=== PATIENT | male | born 1985 | race Two or more races ===

== ENCOUNTER 2021-02-07 11:18 | Emergency (ER) | payer OTHER ==
[~2021-02-07] VITALS: Ht 177.8 cm; Wt 113.0 kg
--- NOTE | 2021-02-07 11:54 | PHYS DOC ---
Past History Past Medical History: No Pertinent History Past Surgical History: Other Additional Past Surgical Histo: left hip replacement Alcohol Use: Occasionally Adult General Chief Complaint Chief Complaint: KNEE INJURY [facility] HPI Patient is a 35-year-old male presenting for right knee pain. Reports he was outside playing with a 70 pound [place] dog when the dog hit him on the right outside portion of his knee causing a valgus type strain. He reports having minimal pain with ambulation but feels a clicking on the medial portion of his knee with residual pain. Reports it 2/10 severity. Has no prior surgeries to said knee. He has not taken anything for the pain. He is ambulatory today but wants evaluation Review of Systems Review of Systems Fourteen body systems of review of systems have been reviewed. See HPI for pertinent positives and negative responses, other long all other systems are negative, non-pertinent or non-contributory Allergies Allergies Allergies Coded Allergies Type Severity Reaction Last Updated Verified No Known Drug Allergies 02/07/21 No Physical Exam Physical Exam Constitutional: Well developed, well nourished, no acute distress, non-toxic appearance. HENT: Normocephalic, atraumatic, bilateral external ears normal, oropharynx moist, no oral exudates, nose normal. Eyes: PERRLA, EOMI, conjunctiva normal, no discharge. Neck: Normal range of motion, no tenderness, supple, no stridor. Cardiovascular: Heart rate regular per monitor Lungs & Thorax: No respiratory distress or accessory muscle use, bilateral chest rise Abdomen: Abdomen soft, non-tender, bowel sounds present in all quadrants, no guarding or rebound, nonacute abdomen. Skin: Warm, dry, no erythema, no rash. Back: No tenderness, no CVA tenderness. Extremities: Medial joint line tenderness of right knee, negative anterior and posterior Priscilla tests, negative sag test, no significant joint laxity with comprehensive evaluation of right knee. Patient's gait unremarkable. No cyanosis, no clubbing, ROM intact, no edema. Neurologic: Alert and oriented X 3, grossly normal motor & sensory function, no focal deficits noted. Psychologic: Affect normal, judgement normal, mood normal. Current Patient Data Vital Signs Vital Signs Date Time Temp Pulse Resp B/P (MAP) Pulse Ox O2 Delivery O2 Flow Rate FiO2 02/07/21 11:20 98.1 74 18 128/92 (104) 99 Room Air EKG EKG [] Radiology/Procedures Radiology/Procedures Site ID: [id number] EXAMINATION: XR KNEE 4 VIEWS WITH PATELLA_RT. HISTORY: 35 years Male Reason: lateral blow to leg, medial knee pain COMPARISON: None. FINDINGS: No fracture, dislocation or radiopaque foreign body. There is a 5 mm well- corticated the ossification seen projecting at the tibio femoral joint line. This is located the centrally in the joint just medial to the tibial spine. Fibula is seen on the lateral view, however at this particular body is not vis ualized and therefore is not accurately localized on the lateral view. The sunrise view demonstrate normal appearance of the patellofemoral joint. The joint spaces and articular surfaces appear unremarkable. IMPRESSION: Well-corticated 5 mm ossific body is seen projecting at the tibial femoral joint level seen only on the AP and oblique projections. This could represent a loose body. Correlation with MRI or CT scan of the right knee can confirm if this is indeed a loose body within the joint cavity. Electronically signed by: Wilner Torres MD (02/07/2021 12:21 PM) [id number] Heart Score C/O Chest Pain: No Risk Factors: Risk Factors: DM, Current or recent (<one month) smoker, HTN, HLP, family history of CAD, obesity. Risk Scores: Risk Factors: DM, Current or recent (<one month) smoker, HTN, HLP, family his tory of CAD, obesity. Course & Med Decision Making Course & Med Decision Making Discussed with the patient all findings and diagnostic testing. I discussed most likely diagnosis of right knee injury. I disclosed findings at length and need for CT and/or MRI. I disclosed we do not have MRI in ER setting and discussed utility of CT. Patient reports pain is not terrible, is in the middle of [employer] moving with the [employer] across the country. He does not want to wait any longer for future CT testing as he reports he is ambulatory and can tolerate the pain. He has full capacity to make this decision. As such, I stressed need for close outpatient follow-up to review today's ER visit. Strict return precautions were also discussed at length with good understanding by patient. Patient voiced understanding and agreement with the plan. Patient knows to come back for repeat evaluation if concerning signs or symptoms present prior to outpatient follow- up. Hemodynamically stable, ambulatory and well-appearing at time of disposition. Dragon Disclaimer Dragon Disclaimer This electronic medical record was generated, in whole or in part, using a voice recognition dictation system. Departure Departure: Impression: Primary Impression: Right medial knee pain Disposition: HOME / SELF CARE / HOMELESS Condition: STABLE Referrals: PCP,UNKNOWN (PCP) Patient Instructions: RICE - Routine Care for Injuries Additional Instructions: As discussed prior to ER departure, your vital signs and physical exam were nonconcerning for any emergent or surgical issues. I disclosed finding of a 5 mm ossific body present in the right knee and recommended need for MRI and/or CT scan to confirm if it is indeed a loose body within the joint cavity. You elected to defer given that you are about to PCS across the country with the . As such, please continue providing supportive care such as rice protocol, take NSAIDs and/or Tylenol for pain as needed, and follow-up immediately after your move for evaluation at local primary care clinic for further evaluation and treatment of your right knee. If any concerning signs or symptoms present prior to outpatient follow-up please do not hesitate to come back to our facility if you are still in the area or nearest ER department or urgent care for evaluation. It was a pleasure to take care of you and I wish you the best going forward ERROL STEPHENS DO Feb 07, 2021 11:54
--- NOTE | 2021-02-07 12:23 | RAD ---
Site ID: [id number] EXAMINATION: XR KNEE 4 VIEWS WITH PATELLA_RT. HISTORY: 35 years Male Reason: lateral blow to leg, medial knee pain COMPARISON: None. FINDINGS: No fracture, dislocation or radiopaque foreign body. There is a 5 mm well-corticated the ossificatio n seen projecting at the tibio femoral joint line. This is located the centrally in the joint just me dial to the tibial spine. Fibula is seen on the lateral view, however at this particular body is not visualized and therefore is not accurately localized on the lateral view. The sunrise view demonstrat e normal appearance of the patellofemoral joint. The joint spaces and articular surfaces appear unrem arkable. IMPRESSION: Well-corticated 5 mm ossific body is seen projecting at the tibial femoral joint level seen only on t he AP and oblique projections. This could represent a loose body. Correlation with MRI or CT scan of the right knee can confirm if this is indeed a loose body within the joint cavity. Electronically signed by: Wilner Torres MD (02/07/2021 12:21 PM) [id number]
[2021-02-07 13:06] VITALS: BP 146/91
== END 2021-02-07 13:06 | disposition home or self-care (01) ==
LOC: ER 11:18
DX: M25.561 Pain in right knee (principal); X58.XXXA Exposure to other specified factors, initial encounter; Y93.89 Activity, other specified; Y92.89 Other specified places as the place of occurrence of the external cause; Y99.8 Other external cause status
CPT/HCPCS: 73564; 99283-25